=== PATIENT | female | born 1995 | race Caucasian/White ===

== ENCOUNTER 2017-10-29 21:18 | Inpatient (IN) | payer BC ==
--- NOTE | 2017-10-29 21:44 | EDPHY ---
H & P Stated Complaint: OD "last night" Source: Patient Exam Limitations: No limitations - Personal History LMP (Females 10-55): 22-28 Days Ago Current Tetanus/Diphtheria Vaccine: Unsure Current Tetanus Diphtheria and Acellular Pertussis (TDAP): Unsure - Medical/Surgical History Hx Asthma: No Hx Chronic Respiratory Disease: No Hx Diabetes: No Hx Cardiac Disease: No Hx Renal Disease: No Hx Cirrhosis: No Hx Alcoholism: No Hx HIV/AIDS: No Hx Splenectomy or Spleen Trauma: No Other PMH: anxiety , MDD, PTSD, [place] - Family History Significant Family History: No pertinent family hx - Social History Smoking Status: Current every day smoker Alcohol Use: Occasionally Time Seen by Provider: 10/29/17 21:30 HPI/ROS: CHIEF COMPLAINT: Overdose last night HISTORY OF PRESENT ILLNESS: Patient is a 22-year-old female with a history of bipolar, anxiety and ADD with multiple hospitalizations in the past. She is brought here by a friend. She states that last night around 1:00 a.m. she overdosed on her medications. She took lamotrigine, lithium, Minipress and also drank alcohol. She states that she took about 10 tablets of each medication. She woke up today and told her friend who took her to a mental health facility who referred her here for medical clearance. She did not take Tylenol. She denies other drug ingestion. She also takes Seroquel and trazodone but did not take them last night. No recent fevers or illness. REVIEW OF SYSTEMS: Constitutional: denies: chills, fever, recent illness, recent injury EENTM: denies: blurred vision, double vision, nose congestion Respiratory: denies: cough, shortness of breath Cardiac: denies: chest pain, irregular heart rate, lightheadedness, palpitations Gastrointestinal/Abdominal: denies: abdominal pain, diarrhea, nausea, vomiting, blood streaked stools Genitourinary: denies: dysuria, frequency, hematuria, pain Musculoskeletal: denies: joint pain, muscle pain Skin: denies: lesions, rash, jaundice, bruising Neurological: denies: headache, numbness, paresthesia, tingling, dizziness, weakness Hematologic/Lymphatic: denies: blood clots, easy bleeding, easy bruising Immunologic/allergic: denies: HIV/AIDS, transplant EXAM: GENERAL: well-nourished and in no acute distress. HEAD: Atraumatic, normocephalic. EYES: Pupils equal round and reactive to light, extraocular movements intact, sclera anicteric, conjunctiva are normal. ENT: TMs normal, nares patent, oropharynx clear without exudates. Moist mucous membranes. NECK: Normal range of motion, supple without lymphadenopathy or JVD. LUNGS: Breath sounds clear to auscultation bilaterally and equal. No wheezes rales or rhonchi. HEART: Regular rate and rhythm without murmurs, rubs or gallops. ABDOMEN: Soft, nontender, normoactive bowel sounds. No guarding, no rebound. No masses appreciated. BACK: No CVA tenderness, no spinal tenderness, step-offs or deformities EXTREMITIES: Normal range of motion, no pitting or edema. No clubbing or cyanosis. NEUROLOGICAL: Cranial nerves II through XII grossly intact. Normal speech, normal gait. 5/5 strength, normal movement in all extremities, normal sensation PSYCH: Decreased affect, answers questions appropriately SKIN: Warm, dry, normal turgor, no visible rashes or lesions. (Wu Martinez) Constitutional: Initial Vital Signs Temperature (C) 36.9 C 10/29/17 21:27 Heart Rate 92 10/29/17 21:27 Respiratory Rate 16 10/29/17 21:27 Blood Pressure 129/82 H 10/29/17 21:27 O2 Sat (%) 97 10/29/17 21:27 O2 Delivery Mode Room Air Allergies/Adverse Reactions: adhesive tape Allergy (Verified 10/30/17 09:54) cephalexin [From Keflex] Allergy (Verified 10/30/17 09:54) Hives ciprofloxacin [From Cipro HC] Allergy (Verified 10/30/17 09:54) Hives hydrocortisone [From Cipro HC] Allergy (Verified 10/30/17 09:54) Hives latex Allergy (Verified 10/29/17 21:35) sertraline [From Zoloft] Allergy (Verified 10/30/17 09:54) Hives sulfamethoxazole [From Bactrim] Allergy (Verified 10/30/17 09:54) Hives trimethoprim [From Bactrim] Allergy (Verified 10/30/17 09:54) Hives venlafaxine [From Effexor] Allergy (Verified 10/30/17 09:54) Hives Home Medications: Medication Instructions Recorded Centereach Carbonate ER [Eskalith Cr 900 mg PO HS 10/29/17 450 mg (*)] Prazosin HCl 2 mg PO HS 10/29/17 QUEtiapine FUMARATE [Seroquel 200 400 mg PO HS 10/29/17 mg (*)] traZODone [traZODone 150MG (*)] 150 mg PO HS 10/29/17 Medical Decision Making ED Course/Re-evaluation: 6:36 a.m.- Overnight, the patient received her usual nighttime medications. The wrapping machine tender from [facility] came to speak with her. The case was presented to the psychiatrist who would like to obtain more information prior to determining her disposition. The plan is to this morning reach the patient's outpatient therapist. The case will be signed out to the oncoming provider Dr. Collado. ( Mariia Islas) Patient's lithium level is not elevated. She is currently asymptomatic. She has stable vital signs. She is medically cleared for psychiatric placement and evaluation. 11:00 p.m. Care transferred to , pending evaluation (Wu Martinez) Differential Diagnosis: Partial list of the Differential diagnosis considered include but were not limited to; personality disorder, suicidality, depression, bipolar, substance abuse and although unlikely based on the history and physical exam, I also considered head injury, infection. (Wu Martinez) Other Provider: I assumed care of this patient at 7:00 a.m., change of shift. Mental health services, [facility], would like to speak to the patient's therapist this morning prior to making further recommendations regarding disposition. 9;00am Advised by Vivian from [facility] that patient will be admitted to [address] [place] [address] Tarango. Transfer paperwork signed by myself at 9:10 am. (Gale Collado) - Data Points Laboratory Results: Laboratory Results 10/29/17 21:45 10/29/17 21:45 Medications Given: Centereach Carbonate (Eskalith Cr) 900 mg PO [facility] Stop: 04/28/18 20:59 Last Admin: 10/31/17 21:28 Dose: 900 mg Lorazepam (Ativan) 0.5 - 1 mg PO Q6HRS PRN PRN Reason: Anxiety, Able to Take PO Stop: 04/28/18 11:49 Last Admin: 10/30/17 16:33 Dose: 1 mg Prazosin HCl (Minipress) 2 mg PO [facility] Stop: 04/28/18 20:59 Last Admin: 10/31/17 21:29 Dose: 2 mg Quetiapine Fumarate (Seroquel) 400 mg PO [facility] Stop: 04/28/18 20:59 Last Admin: 10/31/17 21:29 Dose: 400 mg Trazodone HCl (Trazodone) 150 mg PO [facility] Stop: 04/28/18 20:59 Last Admin: 10/31/17 21:29 Dose: 150 mg Discontinued Medications Centereach Carbonate (Eskalith Cr) 900 mg PO EDNOW ONE Stop: 10/30/17 00:31 Last Admin: 10/30/17 00:34 Dose: 900 mg Prazosin HCl (Minipress) 2 mg PO EDNOW ONE Stop: 10/30/17 00:18 Last Admin: 10/30/17 00:42 Dose: 2 mg Quetiapine Fumarate (Seroquel) 400 mg PO EDNOW ONE Stop: 10/30/17 00:18 Last Admin: 10/30/17 00:35 Dose: 400 mg Quetiapine Fumarate (Seroquel) 400 mg PO ONE Stop: 10/30/17 11:54 Last Admin: 10/30/17 13:17 Dose: Not Given Trazodone HCl (Trazodone) 150 mg PO EDNOW ONE Stop: 10/30/17 00:23 Last Admin: 10/30/17 00:31 Dose: Not Given Trazodone HCl (Trazodone) 100 mg PO EDNOW ONE Stop: 10/30/17 00:28 Last Admin: 10/30/17 00:35 Dose: 100 mg Departure - Departure Disposition: [facility] IP Clinical Impression: Suicidal ideation Condition: Fair
[2017-10-29 22:00] LABS: PLATELET COUNT 203 10^3/uL (150-400)
[2017-10-30] MEDS ORDERED: LITHIUM CARBONATE 300 MG TAB PO ONE (00:17)
[2017-10-30] MEDS ORDERED: QUEtiapine FUMARATE 200 MG TAB PO ONE ×2 (00:17→11:53)
[2017-10-30] MEDS ORDERED: PRAZOSIN HCL 1 MG CAP PO ONE (00:17)
[2017-10-30] MEDS ORDERED: traZODone 50 MG TAB PO ONE (00:27)
[2017-10-30] MEDS ORDERED: LITHIUM CARBONATE ER 450 MG TAB PO ONE (00:30)
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
--- NOTE | 2017-10-30 09:13 | ASMTTCLDSP ---
TLC Discharge Disposition Disposition: Answers: Admit Disposition Notes: Notes: In consultation with [facility] ED physician, Gale Collado MD and on-call psychiatrist, Rg Tarango MD, both concurred that pt appears to meet 27-65 criteria requiring psychiatric hospitalization as pt appears to be a risk of harm to self-due to a mental illness condition. Discharge Concerns/Recommendations: Notes: Pt will be admitted to 3 in. unit. Pt. was read rights and informed of admission. Was patient given the Answers: Yes Inpatient [facility] Prohibited Belongings List while in the ED? For inpatient Dr. Rg Tarango admission, the following psychiatrist agreed to accept patient for admission to [facility] ([facility]): Type of Hold: Answers: M1/72-hour Hold Hold initiated by: Answers: ED Physician Date Signed: 10/30/2017 09:12 AM Electronically Signed By:Vivian Bentley
[2017-10-30] MEDS ORDERED: MAGNESIUM HYDROXIDE 30 ML UDCUP PO PRN (11:50)
[2017-10-30] MEDS ORDERED: ACETAMINOPHEN 325 MG TAB PO PRN (11:50)
[2017-10-30] MEDS ORDERED: MAG HYDROX/AL HYDROX/SIMETH 30 ML UDCUP PO PRN (11:50)
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
--- NOTE | 2017-10-30 15:01 | BCON ---
[f rep st] BEHAVIORAL HEALTH CONSULTATION INTERNAL MEDICINE CONSULTATION DATE OF CONSULTATION: 10/30/2017 REFERRING PHYSICIAN: Rg Tarango MD REASON FOR REFERRAL: Medical clearance for inpatient behavioral health stay. HISTORY OF PRESENT ILLNESS: This person came to the emergency department yesterday, brought by a friend reporting that she had overdosed on medications the night before. Per report, she took lamotrigine, lithium, doxazosin, and drank alcohol. In the morning, she called her friend and reported what had happened. The friend took her to a mental health facility, from where she was referred her to the emergency department. She had a medical evaluation in the emergency department and did not appear to be toxic on any substance. She was evaluated by the mental health team and admitted for further psychiatric care. Currently, she has no acute complaints. PAST MEDICAL HISTORY: 1. Hearing loss in the left ear. 2. Mental health issues with diagnoses of ADD, bipolar disorder, posttraumatic stress disorder, and major depression. PAST SURGICAL HISTORY: She has had a cochlear implant. MEDICATIONS: Prior to admission, she was prescribed: 1. Prazosin 2 mg p.o. q.h.s. 2. [place] 900 mg p.o. q.h.s. 3. Trazodone 150 mg p.o. q.h.s. 4. Quetiapine 400 mg p.o. q.h.s. ALLERGIES: Listed to adhesive tape, cephalexin, ciprofloxacin, hydrocortisone, latex, sertraline, sulfamethoxazole, trimethoprim, and venlafaxine. SOCIAL HISTORY: She is not working. She smokes occasionally and has occasional alcohol. She is living with her parents. FAMILY HISTORY: She is adopted. REVIEW OF SYSTEMS: She is not in pain. She denies fevers or chills. She has a good appetite. She denies recent weight change. She denies nausea, vomiting , constipation, or diarrhea. Otherwise, a 10-point review of systems is negative. PHYSICAL EXAM: VITAL SIGNS: Blood pressure is 106/66. Heart rate is 77. Respiratory rate is 14. Oxygen saturation is 97% on room air. Temperature is 36.8 degrees centigrade. Her weight is 93.9 kg for a body mass index of 31.5. GENERAL: This is an obese female, appears her chronologic age, dressed in street clothes, cooperative and in no acute distress. HEENT: Extraocular movements are intact. Pupils are equal, round, reactive to light. Mucous membranes are moist. Dentition is in good condition. She has a crowded airway , Mallampati class 3. NECK: Supple. HEART: There is regular rate and rhythm , with no murmurs, rubs, or gallops. LUNGS: Clear to auscultation bilaterally. ABDOMEN: Benign. EXTREMITIES: There is no cyanosis, clubbing, or edema. There is a shallow 1 cm abrasion to the right wrist, palmar aspect. NEUROLOGIC: She is alert and oriented x3. Cranial nerves 2-12 are grossly intact. There is no focal weakness. Sensation is intact to light touch, and gait is within normal limits. LABORATORY DATA: Laboratory studies from the emergency department: CBC revealed a slightly elevated white blood cell count at 10.9. It was predominantly neutrophils. There was no left shift. Serum chemistry revealed a slightly low BUN at 6. Otherwise, renal function and electrolytes were within normal limits. Glucose was mildly elevated at 104, but this was likely not fasting, drawn at 2145. Beta hCG was negative for . Toxicology screen in the urine was negative for any substances of abuse and in the serum was negative for salicylates, acetaminophen or ethyl alcohol. Paxico was therapeutic at 0.8. ASSESSMENT/RECOMMENDATIONS: 1. Mental health issues pending further evaluation and management per Psychiatry and the mental health team. 2. Obesity. Consider avoiding medications which could further weight gain; however, her psychosocial stabilization takes first priority. 3. Abrasion to the right wrist, which she reportedly induced with a fingernail. It is shallow. There are no signs or symptoms of infection. Expect it to heal spontaneously. 4. Hearing loss, with cochlear implant. 5. Reported medication overdose. She is without any signs or symptoms of toxicity. I see no medical contraindications to this patient's continued stay on the inpatient behavioral health unit or to any psychiatric medications or procedures. Thank you very much for including me in the care of this patient and please do not hesitate to contact me or the hospitalist service should there be need for further medical evaluation. /[id number]/MODL MTDD
--- NOTE | 2017-10-30 15:08 | PDMN ---
Medical Necessity Medical necessity: MCG; B010-IP other psychiatric disorder INPT 2 days: currently on M1 hold, involuntary admit, current SI, recent suicide attempt.
--- NOTE | 2017-10-30 15:37 | ASMTBHMTP ---
Master Treatment Plan Master Treatment Plan Answers: Depressed Mood with for: Suicidal Ideation Date: 10/30/2017 Diagnosis on Admission: Major Depressive Disorder Expected length of stay: 3-5 Days Reason for admission: Notes: 22 year old female who presented to the [facility] ED voluntarily after she had taken an intentional overdose of lamotrigine, lithium, and ETOH around 1am last night. This morning when pt. woke up, pt. called her friend who took her to a center. Patient's stated presenting problems: Notes: Overdosed on medication with alcohol. Have been feeling pretty depressed past 3-4 weeks. Suicidal thoughts are getting worse. Normally a 5/10, currently 10/10. Patient's goals for treatment: Notes: Want to find something that will keep me stable enough that me depression is back to normal and to get my medications figure out. Patient's strengths: Notes: Kind and empathetic. Identify supports outside of hospital: Notes: Friends Discharge criteria: Notes: Suicidal ideation will resolve and patient will have a plan to safely manage recurrent suicidal ideation. Initial disposition plan/considerations: Notes: Return home/unsure Master Treatment Plan Required Signatures Psychiatrist signature: Answers: Psychiatrist: RN on-shift signature: Answers: RN: Patient signature: Answers: Patient: Date Signed: 10/30/2017 03:36 PM Electronically Signed By:Roxann Collins
[2017-10-30] MEDS: LORazepam 0.5 MG TAB PO PRN (16:33)
[2017-10-30] MEDS: QUEtiapine FUMARATE 200 MG TAB PO SCH (21:23)
[2017-10-30] MEDS: LITHIUM CARBONATE ER 450 MG TAB PO SCH (21:23)
[2017-10-30] MEDS: PRAZOSIN HCL 1 MG CAP PO SCH (21:24)
--- NOTE | 2017-10-31 14:42 | ASMTCMCOM ---
CM Note CM Note Notes: Pt. reports "doing okay". Pt. reports sleeping "real good", adding she doesn't feel rested. Pt. reports no issues with her current medication. Pt. stated she attended one group yesterday. Pt. reports feeling "pretty tired and still feeling pretty shitty". Pt. reports current SI, adding she has sporadic thoughts of how she would commit suicide. Pt. rated her SI 10/10, [id number], and anxiety 9/10. Pt. denies HI, AVH and paranoia. Pt. stated when her anxiety increases, she gets very fast, "like on speed". Pt. reports therapist, groups, and trying new things have helped her feel less suicidal in the past. Pt. stated she has a hard time reaching out for help and tends to isolate at home. Pt. presents as calm, somewhat passive, with a mostly pleasant demeanor, and with some eye contact. Staff report pt. sleeping at least 10.5 hours and being medication compliant. Pt. is currently on SP2 and 1:1. Date Signed: 10/31/2017 02:41 PM Electronically Signed By:Roxann Collins
--- NOTE | 2017-10-31 16:00 | SOAPPROG ---
SOAP Progress Note Assessment/Plan: Assessment: 22 yo woman with h/o BPD, MDD, PTSD and chronic suicidality who was recently d/c 'd from [facility]. She was admitted after SA by OD on prescription meds and alcohol. Plan: 10/31/17 15:54 1. Patient is chronic risk for self-harm and suicide based on her hx. She would benefit most from ongoing DBT tx in group and individual therapy, as well as having a behavioral support plan especially for the high risk transition period immediately after hospital discharge. 2. Patient was admitted on 10/30/17 and continued on d/c meds from [facility] which includes: [place], Seroquel, Prazosin and Trazodone. Patient denies any physical complaints or SE's. 3. Add-on labs were WNL except for low cholesterol. LFTs were WNL. Hgb A1c was WNL. 4. Will order TSH. 5. Holcombe level was 0.8. 6. Patient has not exhibited any unsafe bxs and is able to contract for safety in hospital. She agrees to alert staff if she is feeling like hurting herself. Will change to SP1 and LOS. 7. Will likely need to be on STC once hold expires. Subjective: Met with patient, reviewed chart and d/w staff. Patient is sitting in chair, watching TV. She has flat affect, but does make eye contact with MD while talking. She says she is feeling "fine" today and denies any physical complaints or SE's. She told RN that her depression is normally a "five out of ten," and stated she "always has suicidal thoughts." She reports her depression is currently a 10/10. But she says she usually feels "better" when she's in hospital b/c she likes to "be around other people." She reports feeling "lonely " and bored when she is at home by herself. Much of the patient's mood and behaviors is consistent with borderline personality disorder. The most effective way to minimize her risk of harm is to work on creating structure and routine at home that follows a consistent behavior support plan. Patient would benefit most from DBT treatment. Patient denies intent or plan to hurt herself right now and says she can contract for safety in hospital. Objective: Vital Signs Temp Pulse Resp BP Pulse Ox 36.5 C 82 14 103/53 L 94 10/31/17 06:00 10/31/17 06:00 10/31/17 06:00 10/31/17 06:00 10/31/17 06:00 MSE: Affect: Flat Mood: "OK" TP: Linear TC: Endorses SI, but denies any intent or plan at current time; denies any hallucinations Insight/Judgment: Poor - Time Spent With Patient Time Spent With Patient: 15" - Pending Discharge Pending Discharge Within 24 Hours: No Pending Discharge Within 48 Hours: No ICD10 Worksheet Patient Problems: Problems Problem Status Onset Borderline personality disorder Acute Major depressive disorder Acute Suicidal behavior with attempted self-injury Acute - ICD10 Problem Qualifiers (1) Borderline personality disorder (2) Major depressive disorder Qualifiers: Major depression recurrence: recurrent Active/Remission status: currently active Major depression episode severity: severe Psychotic features: without psychotic features Qualified Code(s): F33.2 - Major depressive disorder, recurrent severe without psychotic features (3) Suicidal behavior with attempted self-injury
[2017-10-31] MEDS: LITHIUM CARBONATE ER 450 MG TAB PO SCH (21:28)
[2017-10-31] MEDS: QUEtiapine FUMARATE 200 MG TAB PO SCH (21:29)
[2017-10-31] MEDS: PRAZOSIN HCL 1 MG CAP PO SCH (21:29)
--- NOTE | 2017-11-01 13:29 | ASMTCMCOM ---
CM Note CM Note Notes: Pt. was working on safety plan this morning when CC approached. Pt. reports feeling "not great". Pt. stated she "feel zechariah shitty, mentally and physically". Pt. stated she was dizzy this morning and fainted. Staff report pt. fainting after blood draw. Pt. reports sleeping "okay", adding she can only sleep on her right side due to her hearing aid. Pt. stated since she was a toddler, she has always banged her head on her pillow to fall asleep, adding "[it] tires you out". Pt. stated she did not bang her head on her pillow last night due to sleeping in milieu. Pt. reports SI, rating it 9 or 10/10. Pt. stated "try my best" when corona for safety. Pt. rated her depression a 10/10 and Anxiety 5/10. Pt. stated sleeping is helping with her anxiety. Pt. denies HI and AVH. Pt. reports "tiny bit" of paranoia, around "getting used to new space". Pt. stated "I don't know" when asked if she could be safe at home. Pt. stated she will try to reach out for help from staff more often. Pt. presents as alert, calm, somewhat malodorous with some eye contact and soft spoken. Date Signed: 11/01/2017 01:29 PM Electronically Signed By:Roxann Collins
--- NOTE | 2017-11-01 17:56 | SOAPPROG ---
SOAP Progress Note Assessment/Plan: Assessment: 22 yo woman with h/o BPD, MDD, PTSD and chronic suicidality who was recently d/c 'd from [facility]. She was admitted after SA by OD on prescription meds and alcohol. Plan: 10/31/17 15:54 1. Patient is chronic risk for self-harm and suicide based on her hx. She would benefit most from ongoing DBT tx in group and individual therapy, as well as having a behavioral support plan especially for the high risk transition period immediately after hospital discharge. 2. Patient was admitted on 10/30/17 and continued on d/c meds from [facility] which includes: [place], Seroquel, Prazosin and Trazodone. Patient denies any physical complaints or SE's. 3. Add-on labs were WNL except for low cholesterol. LFTs were WNL. Hgb A1c was WNL. 4. Will order TSH. 5. Donaldson level was 0.8. 6. Patient has not exhibited any unsafe bxs and is able to contract for safety in hospital. She agrees to alert staff if she is feeling like hurting herself. Will change to SP1 and LOS. 7. Will likely need to be on STC once hold expires. 11/01/17 17:52 1. TSH is 4.460 2. D/C LOS today. Patient continues to contract for safety on unit. She agrees to alert staff if she is feeling unsafe or intends to self-harm. 3. Suicidal thoughts have decreased, depression and anxiety are both slightly improved. 4. Continue current meds. 5. Place on STC 6. Recommend DBT group and individual therapy after d/c. Subjective: Met with patient, reviewed chart and d/w staff. Patient reports mood is slightly improved. She rates her depression and thoughts of suicide as 9/10, yesterday they were both 10/10. She is willing to contract for safety, and agrees to alert staff if she has plans or intent to self-harm on unit. She has not exhibited any unsafe behaviors since coming off SPII yesterday. She was taken off LOS this AM, and has been appropriate and participated in treatment throughout the day without any unsafe behaviors or gestures. She says that "sleeping a lot" helps her feel better, and so does being "around other people. " She ate 60% of breakfast and slept 9 hrs last night. Objective: Vital Signs Temp Pulse Resp BP Pulse Ox 36.5 C 64 14 102/56 L 92 10/31/17 06:00 11/01/17 06:45 11/01/17 06:00 11/01/17 06:45 11/01/17 06:45 MSE: Affect: Sad Mood: "Shitty" TP: Linear, goal-directed TC: Endorses SI, but denies any intent or plan, able to contract for safety on unit Insight/ Judgment: Poor - Time Spent With Patient Time Spent With Patient: 15" - Pending Discharge Pending Discharge Within 24 Hours: No Pending Discharge Within 48 Hours: No ICD10 Worksheet Patient Problems: Problems Problem Status Onset Borderline personality disorder Acute Major depressive disorder Acute Suicidal behavior with attempted self-injury Acute Suicidal ideation Acute - ICD10 Problem Qualifiers (1) Borderline personality disorder (2) Major depressive disorder Qualifiers: Major depression recurrence: recurrent Active/Remission status: currently active Major depression episode severity: severe Psychotic features: without psychotic features Qualified Code(s): F33.2 - Major depressive disorder, recurrent severe without psychotic features (3) Suicidal behavior with attempted self-injury
[2017-11-01] MEDS: PRAZOSIN HCL 1 MG CAP PO SCH (21:22)
[2017-11-01] MEDS: QUEtiapine FUMARATE 200 MG TAB PO SCH (21:22)
[2017-11-01] MEDS: LITHIUM CARBONATE ER 450 MG TAB PO SCH (21:22)
[2017-11-02] MEDS ORDERED: BACITRACIN OINTMENT 1 PACKET TP ONE (07:37)
--- NOTE | 2017-11-02 14:01 | ASMTCMCOM ---
CM Note CM Note Notes: Pt. reports "doing okay, tired". Pt. stated it takes her longer to fall asleep when she doesn't bang her head on her pillow at night. Pt. stated she continues to "feel shitty". Pt. stated she has "constant feeling of emptiness". Pt. reports SI, rating it 10/10, and corona for safety. Pt. stated she does not have a plan on how to hurt herself while on the unit, adding "not enough energy to do it [suicide]". Pt. rated her depression 10/10 and anxiety a 6/10. Pt. denied HI and AVH. Pt. reports some paranoia yesterday, when she was suddenly surrounded by people. Pt. reports she always has concerns about being at home. Pt. stated her mother had poor boundaries, and "she won't let me do diana shit". Pt. presents as depressed, calm, with a mostly pleasant demeanor and good eye contact. Staff report pt. sleeping 7.5 hours and being medication compliant. Date Signed: 11/02/2017 02:00 PM Electronically Signed By:Roxann Collins
--- NOTE | 2017-11-02 15:21 | SOAPPROG ---
SOAP Progress Note Assessment/Plan: Assessment: Borderline Personality Disorder and PTSD. R/O other mood disorders. Improvement noted (see subjective/objective note). Patient is not safe to discharge at this time as patient continues to exhibit signs of mood instability , and express suicidal ideation. Patient requires continued inpatient care because of current mood instability, and requires inpatient level of care to stabilize in order to no longer be a danger to himself/herself, gravely disabled due to mental illness. Patient could benefit from continued inpatient hospitalization for crisis stabilization, safety, and medication evaluation. Plan: Review psychotropic medication treatment informed consent and recommendations. After reviewing options, risk and benefits, patient agrees to continue current medications. No other medication changes at this time as more time is needed to determine ongoing tolerability and efficacy. Plan is to continue to observe patient for response and side effects from medications, and ongoing monitoring and evaluation. Next steps are for patient to meet with long term care social worker to plan a safe discharge plan and establish outpatient services for ongoing treatment. Contact mother and outpatient providers to establish a safe discharge plan and ongoing safety plan. Consider discharge on if patient is in stable condition, safe, and has a safe discharge plan. PSYCHOTROPIC MEDICATION TREATMENT INFORMED CONSENT and RECOMMENDATIONS: Review nature of condition, diagnosis, and prognosis. Review nature and purpose of psychotropic medication treatment. Review type of psychotropic medications being ordered. Review risk and benefits of psychotropic medication treatment. Review probable length of time patient will need to take medications. Review risk and benefits of not undergoing psychotropic medication treatment. Review alternative treatments to psychotropic medications. Review psychotropic medications contraindications, drug-drug interactions, side effects, and importance of reporting any side effects to a psychiatric provider or nurse during inpatient hospitalization, and upon discharge to patients psychiatric outpatient provider, primary care provider, or other health cattle care worker. Review importance of asking a nurse, psychiatric provider, or primary care provider any questions or problems concerning the psychotropic medications. Verify patient understands the information that has been provided, and understands, accepts, and agrees to psychotropic medications. Review patients safety plan and importance of patient to report to staff while hospitalized if patient is ever a danger to self/others, or unable to care for self, and upon discharge, the importance for patient to contact [facility] or [facility], or go to the nearest emergency room, if patient is ever a danger to self/others, or unable to care for self. Recommend that upon discharge patient establish medication management treatment with a psychiatric provider, establishes routine therapy appointments, and follow-up with primary care provider. Verify patient understands and agrees to these recommendations. 11/02/17 15:23 Subjective: Following up with patient for evaluation of mood stability and safety. Patient reports, "Slowly the wheels are turning a bit." Patient expresses the following psychiatric symptoms anxiety 5/10 and depression 10/10. Patient reports taking medications as prescribed, and describes response to medications as good for insomnia and reports mood hasnt really changed much, continues to rate anxiety and depression at moderate to severe. Patient reports no medications have ever been beneficial for her mood; she states she has tried almost all antidepressants with little to no response. Patient does not report undesirable side effects from current medications. Patient reports appetite as good, and reports eating all meals. Patient describes getting 7.5 hours of sleep. Patients reports she feels will get most benefit from groups, and has a target discharge day of , and is motivated to establish a safety plan for after discharge. Patient reports she has tried DBT several times, and it just doesnt seem to work for her; in addition, she describes it is redundant after a while. She reports she is motivated for EMDR. Objective: Vital Signs Temp Pulse Resp BP Pulse Ox 36.6 C 96 14 92/55 L 95 11/02/17 06:00 11/02/17 06:00 11/02/17 06:00 11/02/17 06:00 11/02/17 06:00 NURSING REPORT: Consulted with nursing for update on patients progress in treatment. Nurses report patient is engaged in treatment, is attending groups, slept 7.5 hours, expresses the following psychiatric symptoms: anxiety and depression, exhibits the following psychiatric symptoms: inappropriate mood fluctuation, is eating all meals, is taking medications as prescribed with no report of side effects, with no s/s of EPS/akathisia, and denies SI/HI, A/V hallucinations. Nurses describe patient reporting her suicidal ideation at a 7 on a 0-10 scale. Patient has shown no parasuicidal, suicidal, or self- injurious behavior and has been safe on the unit. DRESSAGE JUDGE UPDATE: currently working on setting up outpatient appointments. UPDATE: Patient is currently tolerating current medications with no reports of side effects, and with fair response for mood symptoms. Patient shows slight treatment response as of today. Patient continues to report suicidal ideation. The patient presents casually dressed and with good hygiene, and looks stated age. Patient is sitting, posture is upright, and position is relaxed. Patient appears awake, alert, and responds appropriately and reasonably during interview. Patient is engaged, relates well to interviewer, and emotional facial expression is appropriate to situation and changes appropriately with topic. Patient is cooperative, makes comfortable eye contact, and movements are voluntary, deliberate, coordinated, and smooth and even with no inappropriate movements. Patient makes laryngeal sounds effortlessly and shares conversation appropriately; pace of conversation is appropriate, and stream of talking is fluent; articulation is clear and understandable; word choice is effortless and appropriate for education level; completes sentences, occasionally pausing to think; rate and volume are appropriate for interview and setting. Patient reports mood as anxious and depressed. Patients affect constricted. Patient has linear and logical thinking, with no loose associations, tangential thought, thought blocking, concrete thinking, or any other signs of formal thought disorder. Patient denies current suicidal and homicidal ideation, and denies hallucinations and delusions. Patient reports she feels safe on unit. Patient appears to be a reliable historian with poor judgement and poor insight into current condition. Patient has no apparent dysfunction in recent or remote memory noted, and no evidence of gross cognitive dysfunction noted at any point during the interview. - Time Spent With Patient Time Spent With Patient: 20 minutes, met with patient individually. - Pending Discharge Pending Discharge Within 24 Hours: No Pending Discharge Within 48 Hours: No ICD10 Worksheet Patient Problems: Problems Problem Status Onset Borderline personality disorder Acute Major depressive disorder Acute Suicidal behavior with attempted self-injury Acute Suicidal ideation Acute
[2017-11-02] MEDS: QUEtiapine FUMARATE 200 MG TAB PO SCH (22:01)
[2017-11-02] MEDS: LITHIUM CARBONATE ER 450 MG TAB PO SCH (22:01)
[2017-11-02] MEDS: PRAZOSIN HCL 1 MG CAP PO SCH (22:02)
--- NOTE | 2017-11-03 09:15 | SOAPPROG ---
SOAP Progress Note Assessment/Plan: Assessment: Borderline Personality Disorder and PTSD. R/O other mood disorders. Improvement noted (see subjective/objective note). Patient is not safe to discharge at this time as patient continues to exhibit signs of mood instability and will require a safety plan for immediate time after discharging due to history of multiple re-hospitalizations. Patient requires continued inpatient care because of current mood instability, and requires inpatient level of care to stabilize in order to no longer be a danger to herself. Patient could benefit from continued inpatient hospitalization for crisis stabilization, safety, and medication evaluation. Plan: Review psychotropic medication treatment informed consent and recommendations. After reviewing options, risk and benefits, patient agrees to continue current medications. No medication changes at this time as more time is needed to determine ongoing tolerability and efficacy. Plan is to continue to observe patient for response and side effects from medications, and ongoing monitoring and evaluation. Next steps are for patient to meet with director of critical care to plan a safe discharge plan and establish outpatient services for ongoing treatment. Contact mother and outpatient providers to establish a safe discharge plan and ongoing safety plan. Consider discharge on if patient is in stable condition, safe, and has a safe discharge plan. PSYCHOTROPIC MEDICATION TREATMENT INFORMED CONSENT and RECOMMENDATIONS: Review nature of condition, diagnosis, and prognosis. Review nature and purpose of psychotropic medication treatment. Review type of psychotropic medications being ordered. Review risk and benefits of psychotropic medication treatment. Review probable length of time patient will need to take medications. Review risk and benefits of not undergoing psychotropic medication treatment. Review alternative treatments to psychotropic medications. Review psychotropic medications contraindications, drug-drug interactions, side effects, and importance of reporting any side effects to a psychiatric provider or nurse during inpatient hospitalization, and upon discharge to patients psychiatric outpatient provider, primary care provider, or other health family member caretaker. Review importance of asking a nurse, psychiatric provider, or primary care provider any questions or problems concerning the psychotropic medications. Verify patient understands the information that has been provided, and understands, accepts, and agrees to psychotropic medications. Review patients safety plan and importance of patient to report to staff while hospitalized if patient is ever a danger to self/others, or unable to care for self, and upon discharge, the importance for patient to contact [facility] or 1, or go to the nearest emergency room, if patient is ever a danger to self/others, or unable to care for self. Recommend that upon discharge patient establish medication management treatment with a psychiatric provider, establishes routine therapy appointments, and follow-up with primary care provider. Verify patient understands and agrees to these recommendations. 11/03/17 09:15 Subjective: Following up with patient for evaluation of mood stability and safety. Patient reports, "Starting to feel better, not sure if the medications are working that well for my mood, medications really haven't ever worked that well for me." Patient reports taking medications as prescribed, and describes response to medications as good for insomnia and reports mood "hasn't really changed much", continues to rate anxiety and depression at moderate to severe. Patient reports no medications have ever been beneficial for her mood; she states she has tried almost all antidepressants with little to no response. Patient does not report undesirable side effects from current medications. Patient reports appetite as good, and reports eating all meals. Patient describes getting 8 hours of sleep. Patients reports she feels will get most benefit from groups, and has a target discharge day of , and is motivated to establish a safety plan for after discharge. Patient states she would like to continue therapy with her OP therapist, Nikki Medina(richelle), in [place], [place] and states she would like to re-establish treatment at a [facility] (partial hospitalization program) she was in at [place] prior to her hospitalization here. Patient states she plans to return to her mothers home in [place], [place] after she discharges. Patient describes feeling safe on the unit and feels safe to discharge with aforementioned plan. Objective: Vital Signs Temp Pulse Resp BP Pulse Ox 36.6 C 97 16 97/52 L 95 11/03/17 06:00 11/03/17 06:00 11/03/17 06:00 11/03/17 06:00 11/03/17 06:00 NURSING REPORT: Consulted with nursing for update on patients progress in treatment. Nurses report patient is engaged in treatment, is attending groups, slept 8 hours, expresses the following psychiatric symptoms: anxiety and depression, exhibits the following psychiatric symptoms: inappropriate mood fluctuation, is eating all meals, is taking medications as prescribed with no report of side effects, with no s/s of EPS/akathisia, and denies SI/HI, denies self-injurious ideation, denies A/V hallucinations. Patient reports she feels safe here and she contracts for safety. RESIDENT CARE COORDINATOR UPDATE: currently working on setting up outpatient appointments. UPDATE: Patient is currently tolerating current medications with no reports of side effects, and with fair response for mood symptoms. Patient shows treatment response as of today, notably most benefit from groups. Patient does not report SI or self-injurious ideation today. The patient presents casually dressed and with good hygiene, and looks stated age. Patient is sitting, posture is upright, and position is relaxed. Patient appears awake, alert, and responds appropriately and reasonably during interview. Patient is engaged, relates well to interviewer, and emotional facial expression is appropriate to situation and changes appropriately with topic. Patient is cooperative, makes comfortable eye contact, and movements are voluntary, deliberate, coordinated, and smooth and even with no inappropriate movements. Patient makes laryngeal sounds effortlessly and shares conversation appropriately; pace of conversation is appropriate, and stream of talking is fluent; articulation is clear and understandable; word choice is effortless and appropriate for education level; completes sentences, occasionally pausing to think; rate and volume are appropriate for interview and setting. Patient reports mood as anxious and depressed. Patients affect constricted. Patient has linear and logical thinking, with no loose associations, tangential thought, thought blocking, concrete thinking, or any other signs of formal thought disorder. Patient denies current suicidal and homicidal ideation, and denies hallucinations and delusions. Patient reports she feels safe on unit. Patient appears to be a reliable historian with poor judgement and poor insight into current condition. Patient has no apparent dysfunction in recent or remote memory noted, and no evidence of gross cognitive dysfunction noted at any point during the interview. - Time Spent With Patient Time Spent With Patient: 30 minutes, met with patient individually. - Pending Discharge Pending Discharge Within 24 Hours: No Pending Discharge Within 48 Hours: Yes Pending Discharge Date: 11/05/17 Pending Discharge Time: 11:00 ICD10 Worksheet Patient Problems: Problems Problem Status Onset Borderline personality disorder Acute Major depressive disorder Acute PTSD (post-traumatic stress disorder) Acute Suicidal behavior with attempted self-injury Acute Suicidal ideation Acute
--- NOTE | 2017-11-03 11:08 | ASMTBHDC ---
Notes Note: Notes: CC confirmed client's diacharge plan: Follow-up with: Nikki Cai [address], [place] [phone] Appt: ThursdayNovember 09, (11/09/17) at 1:00pm [facility] [address], [place] [id number] Intake Appt: November 05 (11/05/17) at 4pm Date Signed: 11/03/2017 11:07 AM Electronically Signed By:Jose Seo
[2017-11-03] MEDS: PRAZOSIN HCL 1 MG CAP PO SCH (20:53)
[2017-11-03] MEDS: QUEtiapine FUMARATE 200 MG TAB PO SCH (20:54)
[2017-11-03] MEDS: LITHIUM CARBONATE ER 450 MG TAB PO SCH (20:54)
--- NOTE | 2017-11-04 08:34 | SOAPPROG ---
SOAP Progress Note Assessment/Plan: Assessment: Borderline Personality Disorder, PTSD, MDD with anxious distress (refractory). Improvement noted (see subjective/objective note). Plan: Review psychotropic medication treatment informed consent and recommendations. After reviewing options, risk and benefits, patient agrees to continue current medications. No medication changes at this time as more time is needed to determine ongoing tolerability and efficacy. Plan is to continue to observe patient for response and side effects from medications, and ongoing monitoring and evaluation. Patient agrees to lithium level tomorrow at 0600. Next steps are for patient to meet with care program resident to plan a safe discharge plan and establish outpatient services for ongoing treatment. Patient to complete both Wellness and Safety Plan prior to discharge. Contact mother and outpatient providers to establish a safe discharge plan and ongoing safety plan. Consider discharge on if patient is in stable condition, safe, and has a safe discharge plan. PSYCHOTROPIC MEDICATION TREATMENT INFORMED CONSENT and RECOMMENDATIONS: Review nature of condition, diagnosis, and prognosis. Review nature and purpose of psychotropic medication treatment. Review type of psychotropic medications being ordered. Review risk and benefits of psychotropic medication treatment. Review probable length of time patient will need to take medications. Review risk and benefits of not undergoing psychotropic medication treatment. Review alternative treatments to psychotropic medications. Review psychotropic medications contraindications, drug-drug interactions, side effects, and importance of reporting any side effects to a psychiatric provider or nurse during inpatient hospitalization, and upon discharge to patients psychiatric outpatient provider, primary care provider, or other health care program resident. Review importance of asking a nurse, psychiatric provider, or primary care provider any questions or problems concerning the psychotropic medications. Verify patient understands the information that has been provided, and understands, accepts, and agrees to psychotropic medications. Review patients safety plan and importance of patient to report to staff while hospitalized if patient is ever a danger to self/others, or unable to care for self, and upon discharge, the importance for patient to contact [facility] or [facility], or go to the nearest emergency room, if patient is ever a danger to self/others, or unable to care for self. Recommend that upon discharge patient establish medication management treatment with a psychiatric provider, establishes routine therapy appointments, and follow-up with primary care provider. Verify patient understands and agrees to these recommendations. 11/04/17 08:35 11/04/17 08:37 Subjective: Following up with patient for evaluation of mood stability and safety. Patient reports, "Feeling better, attending all the groups." Patient reports she has improved since her admission. Patient reports she looks forward to discharging tomorrow and getting re-connected at [facility]. Patient reports this program is from 9am-3pm Thu-Thursday, and the program has worked well for her in the past. Patient reports she plans to stay at her mothers home in [place], [place] after discharge. Patient states she slept well last night, 8 hours, and feels rested this morning. She reports fair response from current medications, and reports no side effects. Patient does not report SI or self-injurious ideation, and has been safe on the unit with no parasuicidal or suicidal behaviors. Patient requests prescriptions for current medications except for Seroquel as she reports she has a RX of this medication waiting at [facility] for her as the RX was called in by her psychiatrist from [facility]. Discuss RX options and patient agrees to RX of current medications to be dispensed in 7-day supplies for added safety measure due to patients recent overdose that led to current hospitalization. Patient responds well to this plan. Patient reports she is completing both her Wellness and Safety Plan and plans to have these completed today to review with her nurse. Objective: Vital Signs Temp Pulse Resp BP Pulse Ox 36.6 C 87 16 101/57 L 95 11/04/17 06:00 11/04/17 06:00 11/04/17 06:00 11/04/17 06:00 11/04/17 06:00 NURSING REPORT: Consulted with nursing for update on patients progress in treatment. Nurses report patient is engaged in treatment, is attending groups, slept 8 hours, expresses the following psychiatric symptoms: moderate anxiety and depression, exhibits the following psychiatric symptoms: mood swings. Patient is eating all meals, is taking medications as prescribed with no report of side effects, with no s/s of EPS/akathisia, and denies SI/HI, denies self- injurious ideation, denies A/V hallucinations. Patient reports she feels safe here and she contracts for safety. Nurses report patient has been safe during stay and has exhibited no suicidal/parasuicidal or self-injurious behaviors. NIGHT STOCKER UPDATE: correctional counselor/case manager reports patient has an appointment at [facility] tomorrow immediately following discharge. UPDATE: Patient is currently tolerating current medications with no reports of side effects, and with fair response for mood symptoms. Patient shows treatment response as of today, notably most benefit from groups and patient expresses improvement since the time of admission. Patient does not report SI or self-injurious ideation and continues to contract for safety. The patient presents casually dressed and with good hygiene, and looks stated age. Patient is sitting, posture is upright, and position is relaxed. Patient appears awake, alert, and responds appropriately and reasonably during interview. Patient is engaged, relates well to interviewer, and emotional facial expression is appropriate to situation and changes appropriately with topic. Patient is cooperative, makes comfortable eye contact, and movements are voluntary, deliberate, coordinated, and smooth and even with no inappropriate movements. Patient makes laryngeal sounds effortlessly and shares conversation appropriately; pace of conversation is appropriate, and stream of talking is fluent; articulation is clear and understandable; word choice is effortless and appropriate for education level; completes sentences, occasionally pausing to think; rate and volume are appropriate for interview and setting. Patient reports mood as anxious and depressed. Patients affect is congruent with mood report. Patient has linear and logical thinking, with no loose associations, tangential thought, thought blocking, concrete thinking, or any other signs of formal thought disorder. Patient denies current suicidal and homicidal ideation, and denies hallucinations and delusions. Patient reports she feels safe on unit. Patient appears to be a reliable historian with fair judgement and fair insight into current condition. Patient has no apparent dysfunction in recent or remote memory noted, and no evidence of gross cognitive dysfunction noted at any point during the interview. - Time Spent With Patient Time Spent With Patient: 30 minutes, met with patient individually. - Pending Discharge Pending Discharge Within 24 Hours: Yes Pending Discharge Within 48 Hours: No Pending Discharge Date: 11/05/17 Pending Discharge Time: 11:00 ICD10 Worksheet Patient Problems: Problems Problem Status Onset Borderline personality disorder Acute Major depressive disorder Acute PTSD (post-traumatic stress disorder) Acute Suicidal behavior with attempted self-injury Acute Suicidal ideation Acute
[2017-11-04] MEDS: LORazepam 0.5 MG TAB PO PRN (12:04)
--- NOTE | 2017-11-04 12:52 | ASMTBHDC ---
Notes Note: Notes: CC calls friend (Bri) [phone] to inquire about assisting client with getting to her follow up appts, discharge, etc. No answer, left all necessary return contact information. Date Signed: 11/04/2017 12:51 PM Electronically Signed By:Jose Seo
[2017-11-04] MEDS: LITHIUM CARBONATE ER 450 MG TAB PO SCH (17:03)
[2017-11-04 20:38] VITALS: BP 104/64
[2017-11-04] MEDS: PRAZOSIN HCL 1 MG CAP PO SCH ×2 (21:33→21:35)
[2017-11-04] MEDS: QUEtiapine FUMARATE 200 MG TAB PO SCH (21:33)
--- NOTE | 2017-11-05 14:03 | BDS ---
[f rep st] BEHAVIORAL HEALTH DISCHARGE SUMMARY REASON FOR ADMISSION: From the ED note dated 10/29/2017, the patient presented to the ER brought by her friend. The patient stated that around 1 a.m. she overdosed on her medications. She reported she took Lamictal, lithium, Minipress, and also drank alcohol. She reported she took about 10 tablets of each medication. The patient reported she woke up today and told her friend who took her to a mental health facility who referred her here for medical clearance. The patient did not take Tylenol and denied ingestion of other medications or drugs. From the [facility] evaluation dated 10/30/2017, the patient stated, "I overdosed on medication last night." The patient reported a history of 5 prior suicide attempts, all overdoses on patient's own medications. The patient reported most recent attempt was 2015. The patient reported history of self-harming for the past 7 years. The patient reported a history of 33 prior hospitalizations with her most recent at [facility]. The patient was admitted involuntarily on an M1 hold due to being a danger to herself. The patient was admitted for safety, crisis stabilization and medication management. ADMITTING DIAGNOSES: 1. Suicidal ideation. 2. Suicidal behavior with attempted self-injury. 3. Major depressive disorder. 4. Borderline Personality Disorder (principal diagnosis) 5. PTSD ADMISSION PHYSICAL EXAM: The patient was seen by Dr. Dos Santos on 10/30/2017, for an internal medicine consultation. Reason for referral was medical clearance for inpatient behavioral health stay. Dr. Dos Santos reported he saw no medical contraindications to the patient's continued stay on the inpatient behavioral health unit or to any psychiatric medications or procedures. For further details, please refer to Dr. Dos Santos's note dated 10/30/2017. ADMISSION LABS: From the emergency department, CBC revealed a slightly elevated white blood cell count at 10.9. It was predominantly neutrophils. There was no left shift. Serum chemistry revealed a slightly low BUN at 6. Otherwise, renal function and electrolytes were within normal limits. Glucose was mildly elevated at 104, but this was likely not fasting drawn at 9:45 p.m. Beta hCG was negative for . Toxicology screen in the urine was negative for any substances of abuse and the serum was negative for salicylates , acetaminophen or ethyl alcohol. Turney was therapeutic at 0.8. Turney was drawn today prior to discharge and the level is still therapeutic at 0.7. A1c drawn 10/30/2017 at 4.8. Fasting lipid panel from 10/30/2017, cholesterol low at 126, non HDL cholesterol elevated at 26, HDL cholesterol low at 86. TSH from 11/01/2017, 4.460. MAJOR PROCEDURES OR TESTS: None during current hospitalization. HOSPITAL COURSE: The most prominent symptoms and behaviors while the patient was here were anxiety and depression. The patient presented with affect instability and mood instability, likely related to principal diagnosis of borderline personality disorder. Target symptoms during hospitalization were anxiety and depression and mood instability related to borderline personality disorder. Treatment modalities utilized were milieu and group therapy. The patient's home medications were continued while hospitalized at patient's request. The patient tolerated medications with no report of side effects and with good response. The patient has improved considerably with no signs of psychiatric symptoms and mild anxiety expressed at discharge. The patient reports she has improved since her admission, states to be in stable condition, feels safe to discharge, and contracts for safety. The patient has completed both Safety plan and Wellness plan and these have been reviewed with treatment team. The patient's response to treatment was good. There were no adverse or unexpected results of treatment. The patient was safe throughout her stay, active in treatment, engaged in groups, and was appropriate with staff. The patient exhibited no parasuicidal, self-injurious, or suicidal behavior during her hospitalization. The treatment team consensus is the patient is in stable condition, and is safe to discharge today. CONDITION AT DISCHARGE: Patient is in stable condition and is no longer a danger to self or others, and is not gravely disabled due to mental illness. Patient is no longer in need of inpatient level of care, and can be safely and effectively treated within the community. The patients level of risk at time of discharge is low based on the risk assessment below following this discharge summary. MSE: The patient is casually dressed and with good hygiene, and looks stated age. Patient is sitting, posture is upright, and position is relaxed. Patient appears awake, alert, and responds appropriately and reasonably during interview. Patient is engaged, relates well to interviewer, and emotional facial expression is appropriate to situation and changes appropriately with topic. Patient is cooperative, makes comfortable eye contact, and movements are voluntary, deliberate, coordinated, and smooth and even with no inappropriate movements. Patient makes laryngeal sounds effortlessly and shares conversation appropriately; pace of conversation is appropriate, and stream of talking is fluent; articulation is clear and understandable; word choice is effortless and appropriate for education level; completes sentences, occasionally pausing to think; rate and volume are appropriate for interview and setting. Patient reports mood as "a little anxious." Patients affect is stable with full variable range, congruent with mood, and appropriate to speech and circumstances. Patient has linear and logical thinking, with no loose associations, tangential thought, thought blocking, concrete thinking, or any other signs of formal thought disorder. Patient denies suicidal and homicidal ideation, and denies hallucinations and delusions. Patient appears to be a reliable historian with sound judgement and good insight into current condition. Patient has no apparent dysfunction in recent or remote memory noted , and no evidence of gross cognitive dysfunction noted at any point during the interview. DISCHARGE DIAGNOSES: (1) Principal diagnosis: borderline personality disorder. Other diagnoses: (2) post traumatic stress disorder, (3) major depressive disorder with anxious distress. CURRENT MEDICATIONS: Turney ER 900 mg p.o. at bedtime, prazosin 2 mg p.o. at bedtime, trazodone 150 mg p.o. at bedtime, Seroquel ER 400 mg p.o. at bedtime. At time of discharge, the patient requested prescriptions for lithium ER 900 po QHS, prazosin 2 mg po QHS, and trazodone 150 mg po QHS. The patient agreed to a 28 day supplies of lithium ER 450 mg tablets, prazosin 2 mg capsule, and trazodone 150 mg tablets. The patient agreed for additional precautionary measure that the medications are to be dispensed in 7 day supplies. The patient states that she lives close to the pharmacy and she agrees to this plan and states that she will be able to fill the medications on a weekly basis. At time of discharge, prescriptions were reviewed with patient for accuracy, and the label instructions to dispense in 7 day supplies was highlighted on each hard copy of the prescriptions for the pharmacist. This was also reviewed with the patient. DISPOSITION: Patient left hospital independently and voluntarily with her friend and plans to go to [facility] today for an intake appointment at 4 p.m. The patient's friend reports that she will be with the patient the entire day, and accompany patient to her appointment at [facility]. Both patient and patient's friend agree that this is a safe disposition plan for the patient. FOLLOW UP: account services coordinator reports the appropriate outpatient follow-up services have been established and outpatient appointments have been scheduled. The patient received written instructions with times and dates of outpatient follow-up appointments. The following follow-up recommendations were provided to the patient at discharge: Continue psychotropic medications as prescribed and attend appointments as scheduled. Report any side effects to a psychiatric outpatient provider, a primary care provider, or other health child care teacher. Address any questions or problems concerning the psychotropic medications with a psychiatric outpatient provider, a primary care provider, or other health child care teacher. Contact [facility] or [facility], or go to the nearest emergency room, if you are ever a danger to yourself/others, or unable to care for yourself. As soon as possible, establish a routine medication management treatment with a psychiatric provider, establish routine therapy appointments, and follow-up with a primary care provider. LEGAL COURSE: The patient was admitted involuntarily on an M1 hold. During the course of the patient's hospitalization, she was placed on a short-term certification. Short-term certification was terminated and patient was discharged today independently and voluntarily with her friend. ATTITUDE AT TIME OF DISCHARGE: Patient's attitude was positive at time of discharge, and patient reports looking forward to discharging today. The patient reports she feels safe to discharge, is no longer a danger to herself, is not a danger to others, is in stable condition, and contracts for safety. The patient states she will continue medications as prescribed and establish medication management treatment with an outpatient provider after discharge. The patient reports that she understands the information that has been provided to her, and she understands, accepts, and agrees to psychotropic medications. The patient describes internal protective factors as the coping skills she has learned while hospitalized here, and she plans to continue to practice these coping skills after discharge. The patient reports external protective factors as her friends and her family. The patient describes looking forward to being outside today and spending time with her friend after discharge. The patient describes future plans as moving to [place] and potentially being treated at [facility]. Patient reports this is a long-term goal and plan for her. The patient states that her short-term goal and plan is to be treated at [facility] and patient reports that she has done well in the [facility] program in the past and she looks forward to re-engaging in this program. The patient reports she has completed both Safety and Wellness plans and has reviewed Safety and Wellness plans with her nurse. The patient states her family and friends look forward to her discharging today. The patient's friend reports the patient has a safe discharge plan and is safe to discharge today with a plan to follow up at [facility]. This JET OPERATOR met with the patient, the patient's friend, and healthcare consultant at time of discharge to review the patient's discharge plan and to discuss the importance of the patient following up at [facility] today for her 4 p.m. appointment. LABS AND STUDIES: There were no pending labs or studies at time of discharge. ADVANCE DIRECTIVES: There were no advance directives on file, and patient was full code during hospitalization. The following psychotropic medication treatment informed consent and recommendations were provided to the patient at time of discharge. Patient reports he understands, accepts, and agrees to the information that has been provided. PSYCHOTROPIC MEDICATION TREATMENT INFORMED CONSENT and RECOMMENDATIONS: Review nature of condition, diagnosis, and prognosis. Review nature and purpose of psychotropic medication treatment. Review type of psychotropic medications being prescribed. Review risk and benefits of psychotropic medication treatment. Review probable length of time will need to take medications. Review risk and benefits of not undergoing psychotropic medication treatment. Review alternative treatments to psychotropic medications. Review psychotropic medications contraindications, side effects, and importance of reporting any side effects to a psychiatric provider, primary care provider, or other health child care teacher. Review importance of her asking a psychiatric provider or primary care provider any questions or problems concerning the psychotropic medications. Review importance of reporting to a psychiatric provider, primary care provider, or other health child care teacher if she plans to or becomes . Review safety plan and the importance to contact [facility] or [facility] , or go to the nearest emergency room, if ever a danger to yourself/others, or unable to care for yourself. Recommend upon discharge to establish routine medication management treatment with a psychiatric provider, establish routine therapy appointments, and follow-up with a primary care provider. Verify patient understands, accepts, and agrees to the information that has been provided. SUICIDE ASSESSMENT FIVE-STEP EVALUATION AND TRIAGE (1) RISK FACTORS: (a) Suicidal behavior: reports history of 5 attempts by overdose; patient reports most recent attempt in 2016 by overdose (b) Current/past psychiatric disorders: Borderline Personality Disorder ( principal diagnosis), Major Depressive Disorder with anxious distress, and PTSD (c) Duarte symptoms: patient reports mild anxiety at time of discharge (d) Family history: patient is unaware of family history as she was adopted at a young age (e) Precipitants/Stressors/Interpersonal: patient reports none (f) Change in treatment: discharge from psychiatric hospital (g) Access to firearms: none (2) PROTECTIVE FACTORS: (a) Internal: coping skills learned while hospitalized (b) External: family and friends (3) SUICIDAL INQUIRY: (a) Ideation: none at time of discharge (b) Plan: none at time of discharge (c) Behaviors: none; patient was safe throughout stay with no suicidal, parasuicidal, or self-injurious behaviors (d) Intent: none at time of discharge (4) RISK LEVEL: Low: modifiable risk factors, strong protective factors; no suicidal or self-injurious ideation. Intervention: treatment plan to reduce symptoms including medications and therapy, provided emergency/crisis numbers, and established follow-up plan. Patient contracts for safety--completed by [facility], has a follow-up appointment scheduled today at [facility], and patient states she will contact Crisis or 1 if she is ever a danger to herself. Patient's friend will be with her today immediately following discharge, and plans to accompany her to her intake appointment at [facility]. /[id number]
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
== END 2017-11-05 11:43 | disposition home or self-care (01) | DRG 883 ==
LOC: BBEH 10-30 11:30
PROVIDERS: ADMIT Psychiatry & Neurology Psychiatry; ATTEND Psychiatry & Neurology Psychiatry
DX: F60.9 Personality disorder, unspecified (principal); F43.10 Post-traumatic stress disorder, unspecified; F32.9 Major depressive disorder, single episode, unspecified; F31.81 Bipolar II disorder; E66.9 Obesity, unspecified; Z68.31 Body mass index [BMI] 31.0-31.9, adult
CPT/HCPCS: 80305; G0480